=== PATIENT | female | born 1985 | race Caucasian/White ===

== ENCOUNTER 2020-12-26 16:19 | Day surgery (SDC) | payer BC, OTHER ==
[2020-12-26 16:29] VITALS: BMI 24.5
[2020-12-26 17:49] LABS: BASO % 0.1 % (0-2.0); EOS % 0.1 % (0-4.5); HEMATOCRIT 37.6 % (32.4-45.2); HEMOGLOBIN 13.2 GM/dL (10.7-15.3); LYMPH % 4.7 % (8-40); MCH 31.7 pg (25.7-33.7); MEAN CELL VOLUME 90.5 fl (80-96); MEAN PLT VOLUME 8.8 fl (7.5-11.1); MONO % 3.3 % (3.8-10.2); NEUT % 91.8 % (42.8-82.8); PLATELET COUNT 292 K/MM3 (134-434); RBC 4.15 M/mm3 (3.60-5.2); RDW 13.5 % (11.6-15.6); WHITE BLOOD COUNT 13.8 K/mm3 (4.0-10.0)
[2020-12-26 17:56] LABS: INR 1.04 (0.83-1.09); PROTHROMBIN TIME (PATIENT) 12.6 SEC (9.7-13.0)
[2020-12-26 18:22] LABS: TOT PROT 10.6 g/dl (6.4-8.2)
[2020-12-26 18:38] LABS: ALBUMIN 3.4 g/dl (3.4-5.0); ANION GAP -10 MMOL/L (8-16); BLOOD UREA NITROGEN 10.4 mg/dL (7-18); CALCIUM 8.4 mg/dL (8.5-10.1); CHLORIDE 98 mmol/L (98-107); CO2 21 mmol/L (21-32); CREATININE 0.8 mg/dL (0.55-1.3); GLUCOSE,RANDOM 80 mg/dL (74-106)
[2020-12-26 18:40] LABS: POTASSIUM > 10.0 mmol/L (3.5-5.1)
[2020-12-26 18:41] LABS: SODIUM 109 mmol/L (136-145)
[2020-12-26] MEDS ORDERED: LACTATED RINGERS SOLUTION 1000 ML INFUS.BAG IV ONE (19:11)
[2020-12-26] MEDS ORDERED: LIDOCAINE HCL 2% 100 MG/5 ML DISP.SYRIN ONE (19:28)
[2020-12-26] MEDS ORDERED: PROPOFOL 20 ML ONE (19:28)
[2020-12-26] MEDS ORDERED: MIDAZOLAM HCL 2 MG/2 ML SINGLE DOSE VIAL ONE (19:28)
[2020-12-26] MEDS ORDERED: fentaNYL CITRATE 250 MCG/5 ML VIAL ONE (19:28)
[2020-12-26] MEDS ORDERED: SUCCINYLCHOLINE CHLORIDE 200 MG/10 ML SYRINGE ONE (19:28)
[2020-12-26] MEDS ORDERED: ACETAMINOPHEN INJECTION 100 ML IVPB ONE ×4 (19:29→22:44)
[2020-12-26 19:38] LABS: POTASSIUM 3.7 mmol/L (3.5-5.1)
[2020-12-26 19:41] LABS: BLOOD UREA NITROGEN 8.9 mg/dL (7-18); CALCIUM 9.1 mg/dL (8.5-10.1)
[2020-12-26 19:44] LABS: CREATININE 0.7 mg/dL (0.55-1.3)
[2020-12-26 19:46] LABS: BILIRUBIN,TOTAL 0.8 mg/dL (0.2-1)
[2020-12-26 19:48] LABS: TOT PROT 7.4 g/dl (6.4-8.2)
[2020-12-26] MEDS ORDERED: ACETAMINOPHEN 1000 MG/100 ML VIAL (NON FORMULARY) IVPB ONE (19:48)
[2020-12-26] MEDS ORDERED: ROCURONIUM BROMIDE 50 MG/5 ML SYRINGE ONE (20:09)
[2020-12-26] MEDS: ACETAMINOPHEN 500 MG TABLET (FP) PO ONE ×2 (20:11→22:36)
[2020-12-26] MEDS ORDERED: ONDANSETRON 4 MG/2 ML VIAL IVPUSH PRN ×2 (20:13→22:22)
[2020-12-26 20:17] LABS: BASO % 0.2 % (0-2.0); EOS % 0.1 % (0-4.5); HEMATOCRIT 34.5 % (32.4-45.2); HEMOGLOBIN 11.8 GM/dL (10.7-15.3); LYMPH % 8.4 % (8-40); MCH 31.9 pg (25.7-33.7); MCHC 34.2 g/dl (32.0-36.0); MEAN CELL VOLUME 93.2 fl (80-96); MEAN PLT VOLUME 8.6 fl (7.5-11.1); MONO % 3.7 % (3.8-10.2); NEUT % 87.6 % (42.8-82.8); PLATELET COUNT 226 K/MM3 (134-434); RBC 3.71 M/mm3 (3.60-5.2); RDW 12.2 % (11.6-15.6); WHITE BLOOD COUNT 10.8 K/mm3 (4.0-10.0)
[2020-12-26 20:24] LABS: ANISOCYTOSIS 0; MACROCYTOSIS 0; PLATELET ESTIMATE NORMAL
[2020-12-26] MEDS: LACTATED RINGERS SOLUTION 1,000 ML IV SCH (20:27)
[2020-12-26] MEDS ORDERED: ceFAZolin SODIUM 1 GM VIAL IVPB ONE (20:53)
[2020-12-26] MEDS ORDERED: HYDROmorphone HCl 2 MG/ML VIAL ONE ×2 (21:36→22:52)
[2020-12-26] MEDS ORDERED: NEOSTIGMINE METHYLSULFATE 0.5 MG/ML - 10 ML MDV ONE (21:39)
[2020-12-26] MEDS ORDERED: BUPIVACAINE HCL/PF 0.5% (5 MG/ML) 30 ML VIAL IJ ONE ×3 (22:00)
[2020-12-26] MEDS ORDERED: IBUPROFEN 800 MG/8 ML IJ IVPB PRN (22:22)
[2020-12-26] MEDS ORDERED: IBUPROFEN 600 MG TABLET (FP) PO PRN (22:22)
[2020-12-26] MEDS ORDERED: PROMETHAZINE HCL 25 MG/1 ML VIAL ONE (22:26)
[2020-12-26] MEDS ORDERED: ONDANSETRON 4 MG/2 ML VIAL ONE (22:26)
[2020-12-26] MEDS ORDERED: ELECTROLYTE-148 SOLN 1,000 ML IV SCH (22:30)
[2020-12-26] MEDS: HYDROmorphone HCl 2 MG/ML VIAL IVPUSH PRN (22:52)
[2020-12-27] MEDS: HYDROmorphone HCl 2 MG/ML VIAL IVPUSH PRN (00:02)
[2020-12-27] MEDS: oxyCODONE HCL 5 MG TABLET PO PRN ×3 (03:54→20:43)
[2020-12-27] MEDS: LACTATED RINGERS SOLUTION 1,000 ML IV SCH (03:57)
[2020-12-27] MEDS: ACETAMINOPHEN 325 MG TABLET (FP) PO PRN ×3 (09:01→20:41)
[2020-12-27] MEDS: IBUPROFEN 600 MG TABLET (FP) PO PRN ×3 (09:06→20:42)
[2020-12-27 11:28] LABS: HEMATOCRIT 32.2 % (32.4-45.2); HEMOGLOBIN 11.4 GM/dL (10.7-15.3); MCH 32.5 pg (25.7-33.7); MCHC 35.5 g/dl (32.0-36.0); MEAN CELL VOLUME 91.4 fl (80-96); MEAN PLT VOLUME 8.6 fl (7.5-11.1); PLATELET COUNT 252 K/MM3 (134-434); RBC 3.52 M/mm3 (3.60-5.2); RDW 12.2 % (11.6-15.6); WHITE BLOOD COUNT 9.1 K/mm3 (4.0-10.0)
[2020-12-27 22:54] VITALS: BP 123/68; PULSE 57; TEMP 98.7
== END 2020-12-27 20:53 | disposition home or self-care (01) ==
LOC: JER 16:19 → JASUSAT 19:26 → JERBED 19:41 → UNDOADMIN 19:41 → J3W 12-27 01:00 → JERBED 12-27 01:00 → J3W 12-27 01:00 → JASUSAT 12-27 20:53
PROVIDERS: ATTEND Obstetrics & Gynecology
PROC: 0UT64ZZ Resection of Left Fallopian Tube, Percutaneous Endoscopic Approach (ICD-10-PCS; 2020-12-26)
PROC: 10T24ZZ Resection of Products of Conception, Ectopic, Percutaneous Endoscopic Approach (ICD-10-PCS; principal; 2020-12-26 19:38)
DX: O00.102 Left tubal pregnancy without intrauterine pregnancy (principal); K66.1 Hemoperitoneum
CPT/HCPCS: 36415; 76830-TC; 80053; 84702; 85025; 85027; 85610; 86850; 86900; 86901; 88305-TC; 93005; 93010; 94760; 99285-25; C9803; J0131; U0003

== ENCOUNTER 2023-01-14 07:57 | Inpatient (IN) | payer BC, OTHER ==
[2023-01-14 08:54] VITALS: BMI 31.0
[2023-01-14] MEDS ORDERED: CITRIC ACID/SODIUM CITRATE 30 ML UNIT-DOSE CUP PO ONE (09:37)
[2023-01-14] MEDS ORDERED: ELECTROLYTE-148 SOLN 1,000 ML IV SCH (09:45)
[2023-01-14] MEDS ORDERED: ACETAMINOPHEN 325 MG TABLET (FP) PO PRN (10:06)
[2023-01-14] MEDS ORDERED: METHYLERGONOVINE MALEATE 0.2 MG/1 ML AMP IM PRN (10:06)
[2023-01-14] MEDS ORDERED: morphine SULFATE (PF) 1 MG/2 ML SYRINGE ONE (10:33)
[2023-01-14] MEDS ORDERED: FENTANYL CITRATE/PF 50 MCG/ML VIAL ONE (10:33)
[2023-01-14] MEDS ORDERED: OXYTOCIN 10 UNITS/ML VIAL ONE ×2 (11:10→11:23)
[2023-01-14] MEDS ORDERED: METOCLOPRAMIDE HCL INJECTION 10 MG/2 ML VIAL ONE (11:11)
[2023-01-14 11:49] LABS: CORD HCO3 26.3 mmHg (20-29); CORD PCO2 66.1 mmHg (30-78); CORD pH 7.218 (7.14-7.44)
[2023-01-14 11:51] LABS: CORD BASE EXCESS -1.1 mmol/L (0-2); CORD HCO3 24.7 mmHg (20-29); CORD PCO2 45.2 mmHg (30-78); CORD pH 7.355 (7.14-7.44)
[2023-01-14] MEDS: OXYTOCIN 20 UNITS in 0.9% NS 20 UNIT/1,000 ML INFUS.BAG IV SCH ×2 (12:14→17:16)
[2023-01-14] MEDS ORDERED: oxyCODONE HCL 5 MG TABLET PO PRN (22:06)
[2023-01-15] MEDS: SIMETHICONE 80 MG TAB.CHEW (FP) PO PRN ×2 (05:40→21:29)
[2023-01-15] MEDS: IBUPROFEN 600 MG TABLET (FP) PO PRN ×4 (05:40→21:29)
[2023-01-15 09:04] LABS: BASO % 0.1 % (0-2.0); EOS % 1.2 % (0-4.5); HEMATOCRIT 38.2 % (32.4-45.2); HEMOGLOBIN 13.4 GM/dL (10.7-15.3); LYMPH % 23.2 % (8-40); MCH 31.8 pg (25.7-33.7); MEAN CELL VOLUME 90.8 fl (80-96); MEAN PLT VOLUME 9.1 fl (7.5-11.1); MONO % 4.5 % (3.8-10.2); PLATELET COUNT 220 10^3/uL (134-434); RBC 4.21 M/mm3 (3.60-5.2); RDW 13.4 % (11.6-15.6)
[2023-01-15] MEDS: ENOXAPARIN NA (PORCINE) 40 MG/0.4 ML DISP.SYRIN SQ SCH (09:51)
[2023-01-15] MEDS ORDERED: BISACODYL 10 MG SUPP.RECT RC PRN (10:06)
[2023-01-15 21:26] VITALS: RESP 18
[2023-01-16] MEDS: IBUPROFEN 600 MG TABLET (FP) PO PRN ×4 (06:18→22:38)
[2023-01-16] MEDS: SIMETHICONE 80 MG TAB.CHEW (FP) PO PRN ×4 (06:18→22:38)
[2023-01-16] MEDS: ENOXAPARIN NA (PORCINE) 40 MG/0.4 ML DISP.SYRIN SQ SCH (10:00)
[2023-01-17 09:19] LABS: BASO % 0.1 % (0-2.0); EOS % 3.5 % (0-4.5); HEMATOCRIT 36.6 % (32.4-45.2); HEMOGLOBIN 12.7 GM/dL (10.7-15.3); LYMPH % 16.6 % (8-40); MCH 31.9 pg (25.7-33.7); MCHC 34.8 g/dl (32.0-36.0); MEAN CELL VOLUME 91.8 fl (80-96); MEAN PLT VOLUME 8.4 fl (7.5-11.1); NEUT % 74.8 % (42.8-82.8); PLATELET COUNT 232 10^3/uL (134-434); RBC 3.99 M/mm3 (3.60-5.2); RDW 13.2 % (11.6-15.6); WHITE BLOOD COUNT 6.9 K/mm3 (4.0-10.0)
[2023-01-17] MEDS: ENOXAPARIN NA (PORCINE) 40 MG/0.4 ML DISP.SYRIN SQ SCH (09:54)
[2023-01-17] MEDS: SIMETHICONE 80 MG TAB.CHEW (FP) PO PRN ×2 (09:54→22:38)
[2023-01-17] MEDS: IBUPROFEN 600 MG TABLET (FP) PO PRN (22:38)
[2023-01-18 08:07] VITALS: BP 121/80; PULSE 73; TEMP 98.2
[2023-01-18] MEDS: ENOXAPARIN NA (PORCINE) 40 MG/0.4 ML DISP.SYRIN SQ SCH (09:26)
== END 2023-01-18 13:18 | disposition home or self-care (01) | DRG 788 ==
LOC: JLDR 07:57 → J3W 14:25
PROVIDERS: ADMIT Obstetrics & Gynecology; ATTEND Obstetrics & Gynecology
PROC: 10D00Z1 Extraction of Products of Conception, Low, Open Approach (ICD-10-PCS; principal; 2023-01-14)
DX: O36.5930 Maternal care for other known or suspected poor fetal growth, third trimester, not applicable or unspecified (principal); O24.429 Gestational diabetes mellitus in childbirth, unspecified control; O69.81X0 Labor and delivery complicated by cord around neck, without compression, not applicable or unspecified; Z3A.37 37 weeks gestation of pregnancy; Z37.0 Single live birth
CPT/HCPCS: 36415; 36600; 82803; 85025; 88307-TC; 94010